=== PATIENT | female | born 1990 | race American Indian/Alaskan Native ===

== ENCOUNTER 2019-04-21 16:55 | Emergency (ER) | payer MEDICAID ==
--- NOTE | 2019-04-21 17:40 | EDM.PDOC ---
Scribed by Holly Orozco 04/21/19 1457 for Brandon Sears MD ED HPI GENERAL MEDICAL PROBLEM - General Chief Complaint: Gastrointestinal Problem Stated Complaint: POSSIBLE FLU Time Seen by Provider: 04/21/19 17:05 Source of Information: Reports: Patient, RN, RN Notes Reviewed History Limitations: Reports: No Limitations - History of Present Illness INITIAL COMMENTS - FREE TEXT/NARRATIVE: Patient presents to ER by POV complaining of having acid reflux for months and stomach being queazy since she got the flu shot last week. She is not vomiting and states that she is still eating and drinking. She has had epigastric pain and burning. She has had flank pain and chills. Onset: Gradual Duration: Constant Location: Reports: Abdomen Quality: Reports: Ache Severity: Moderate Improves with: Reports: None Worsens with: Reports: None Associated Symptoms: Reports: No Other Symptoms - Related Data Allergies Allergy/AdvReac Type Severity Reaction Status Date / Time No Known Allergies Allergy Verified 04/21/19 17:08 Home Meds: Home Meds . 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 ED EXAM, GI/ABD - Physical Exam Exam: See Below Exam Limited By: No Limitations General Appearance: Alert, WD/WN, No Apparent Distress Eyes: Bilateral: Normal Appearance Ears: Normal External Exam, Normal Canal, Hearing Grossly Normal, Normal TMs Nose: Normal Inspection, Normal Mucosa, No Blood Throat/Mouth: Normal Inspection, Normal Lips, Normal Teeth, Normal Gums, Normal Oropharynx, Normal Voice, No Airway Compromise Head: Atraumatic, Normocephalic Neck: Normal Inspection, Supple, Non-Tender, Full Range of Motion Respiratory/Chest: No Respiratory Distress, Lungs Clear, Normal Breath Sounds, No Accessory Muscle Use, Chest Non-Tender Cardiovascular: Normal Peripheral Pulses, Regular Rate, Rhythm, No Edema, No Gallop, No JVD, No Murmur, No Rub GI/Abdominal Exam: Other (epigastric tenderness) (Female) Exam: Deferred Rectal (Female) Exam: Deferred Back Exam: Normal Inspection, Full Range of Motion, NT Extremities: Normal Inspection, Normal Range of Motion, Non-Tender, Normal Capillary Refill, No Pedal Edema Neurological: Alert, Oriented, CN II-XII Intact, Normal Cognition, Normal Gait, Normal Reflexes, No Motor/Sensory Deficits Psychiatric: Normal Affect, Normal Mood Skin Exam: Warm, Dry, Intact, Normal Color, No Rash Course - Vital Signs Last Recorded V/S: Last Vital Signs Temp 97.7 F 04/21/19 17:08 Pulse 75 04/21/19 17:08 Resp 20 04/21/19 17:08 BP 101/70 04/21/19 17:08 Pulse Ox 100 04/21/19 17:08 - Orders/Labs/Meds Orders: Active Orders 24 hr Category Date Time Status CULTURE STREP A CONFIRMATION [] Stat Lab 04/21/19 17:13 Results STREP SCRN A RAPID W CULT CONF [] Stat Lab 04/21/19 17:13 Results Labs: Laboratory Tests 04/21/19 04/21/19 Range/Units 17:17 17:17 Urine Color Yellow (YELLOW) Urine Appearance Slightly cloudy (CLEAR) Urine pH 7.0 (5.0-9.0) Ur Specific [place] 1.025 (1.005-1.030) Urine Protein Negative (NEGATIVE) Urine Glucose (UA) Negative (NEGATIVE) Urine Ketones Negative (NEGATIVE) Urine Occult Blood Trace-intact H (NEGATIVE) Urine Nitrite Negative (NEGATIVE) Urine Bilirubin Negative (NEGATIVE) Urine Urobilinogen 0.2 (0.2-1.0) mg/dL Ur Leukocyte Esterase Negative (NEGATIVE) Urine RBC 5-10 H /HPF Urine WBC 0-5 (0-5/HPF) /HPF Ur Epithelial Cells Few (NOT SEEN) /HPF Urine Bacteria Rare (0-FEW/HPF) /HPF Urine HCG, Qual Negative Rapid strep: Negative. Departure - Departure Time of Disposition: 17:32 Disposition: Home, Self-Care 01 Condition: Good Clinical Impression: Epigastric pain, Viral syndrome GERD (gastroesophageal reflux disease) Qualifiers: Esophagitis presence: without esophagitis Qualified Code(s): K21.9 - Gastro- esophageal reflux disease without esophagitis - Discharge Information *PRESCRIPTION DRUG MONITORING PROGRAM REVIEWED*: Not Applicable *COPY OF PRESCRIPTION DRUG MONITORING REPORT IN PATIENT ISABELLA: Not Applicable Instructions: Viral Illness, Adult, Gastroesophageal Reflux Disease, Adult, [id number] Forms: ED Department Discharge Additional Instructions: RX: Pepcid 20mg. Follow up in clinic in the next 1 to 2 weeks if not improving. - My Orders Last 24 Hours: My Active Orders 04/21/19 17:13 CULTURE STREP A CONFIRMATION [RM] Stat STREP SCRN A RAPID W CULT CONF [RM] Stat - Assessment/Plan Last 24 Hours: My Active Orders 04/21/19 17:13 CULTURE STREP A CONFIRMATION [RM] Stat STREP SCRN A RAPID W CULT CONF [RM] Stat I have read and agree with the documentation that has been completed regarding this visit. By signing this record, I attest that the documentation was completed in my physical presence and is an accurate record of the encounter.
== END 2019-04-21 17:42 | disposition home or self-care (01) ==
LOC: DL.ED 16:55
DX: K21.9 Gastro-esophageal reflux disease without esophagitis (principal); B34.9 Viral infection, unspecified
CPT/HCPCS: 81001; 81025; 87081; 87430; 99283

== ENCOUNTER 2019-06-24 10:40 | Emergency (ER) | payer MEDICAID ==
--- NOTE | 2019-06-24 12:10 | EDM.PDOC ---
ED HPI GENERAL MEDICAL PROBLEM - General Chief Complaint: Skin Complaint Stated Complaint: BOIL ON FACE Time Seen by Provider: 06/24/19 11:55 Source of Information: Reports: Patient History Limitations: Reports: No Limitations - History of Present Illness INITIAL COMMENTS - FREE TEXT/NARRATIVE: This 28 yo female patient reports to the ED with swelling to her chin. The patient was seen in the [facility] yesterday for the same symptoms and started on Bactrim. The patient reports she took 1 dose of the antibiotic and noticed that the symptoms have not gotten any better. The patient reports she has been using Tea Tree Oil on the area along with warm packs. 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: Musculoskeletal History: Reports: Fracture, Other (See Below) Other Musculoskeletal History: tailbone fracture Neurological History: Reports: Seizure Other Neuro History: seizure related to severe dehydration Psychiatric History: Reports: Anxiety, Depression - Infectious Disease History Infectious Disease History: Reports: Chicken Pox - Past Surgical History HEENT Surgical History: Reports: Other (See Below) Other HEENT Surgeries/Procedures: cyst removal to the eye Female Surgical History: Reports: Section Social & Family History - Family History Family Medical History: Noncontributory - Tobacco Use Smoking Status *Q: Former Smoker Used Tobacco, but Quit: Yes Month/Year Tobacco Last Used: 2017 - Caffeine Use Caffeine Use: Reports: Energy Drinks - Recreational Drug Use Recreational Drug Use: No - Living Situation & Occupation Living situation: Reports: with Family ED ROS GENERAL - Review of Systems Review Of Systems: Comprehensive ROS is negative, except as noted in HPI. ED EXAM, SKIN/RASH Exam: See Below Exam Limited By: No Limitations General Appearance: Alert, WD/WN, No Apparent Distress Eye Exam: Bilateral Eye: EOMI, Normal Inspection, PERRL Ears: Normal External Exam, Normal Canal, Hearing Grossly Normal, Normal TMs Nose: Normal Inspection, Normal Mucosa, No Blood Throat/Mouth: Normal Inspection, Normal Lips, Normal Teeth, Normal Gums, Normal Oropharynx, Normal Voice, No Airway Compromise Head: Atraumatic, Normocephalic Neck: Normal Inspection, Supple, Non-Tender, Full Range of Motion Respiratory/Chest: No Respiratory Distress, Lungs Clear, Normal Breath Sounds, No Accessory Muscle Use, Chest Non-Tender Cardiovascular: Normal Peripheral Pulses, Regular Rate, Rhythm, No Edema, No Gallop, No JVD, No Murmur, No Rub GI/Abdominal: Normal Bowel Sounds, Soft, Non-Tender, No Organomegaly, No Distention, No Abnormal Bruit, No Mass (Female) Exam: Deferred Rectal (Female) Exam: Deferred Back Exam: Normal Inspection, Full Range of Motion, NT Neurological: Alert, Oriented, CN II-XII Intact, Normal Cognition, Normal Gait, Normal Reflexes, No Motor/Sensory Deficits Psychiatric: Normal Affect, Normal Mood Skin: Erythema, Increased Warmth Location, Skin: Face (chin) Characteristics: Erythematous Lymphatic: No Adenopathy Course - Vital Signs Last Recorded V/S: Last Vital Signs Temp 36.0 C 06/24/19 10:51 Pulse 66 06/24/19 10:51 Resp 16 06/24/19 10:51 BP 124/75 06/24/19 10:51 Pulse Ox 99 06/24/19 10:51 - Orders/Labs/Meds Labs: Laboratory Tests 06/24/19 Range/Units 12:10 WBC 13.2 H (5.0-10.0) 10^3/uL RBC 4.93 (4.2-5.4) 10^6/uL Hgb 14.7 (12.0-16.0) g/dL Hct 43.6 (37.0-47.0) % MCV 88.4 (80-100) fL MCH 29.8 (27.0-34.0) pg MCHC 33.7 (33.0-35.0) g/dL Plt Count 233 (150-450) 10^3/uL Neut % (Auto) 77.0 H (42.2-75.2) % Lymph % (Auto) 14.1 L (20.5-50.1) % [place] % (Auto) 7.7 (2-8) % Eos % (Auto) 0.9 L (1.0-3.0) % Baso % (Auto) 0.3 (0.0-1.0) % Departure - Departure Time of Disposition: 12:36 Disposition: Home, Self-Care 01 Condition: Fair Clinical Impression: Cellulitis, face - Discharge Information *PRESCRIPTION DRUG MONITORING PROGRAM REVIEWED*: Not Applicable *COPY OF PRESCRIPTION DRUG MONITORING REPORT IN PATIENT ISABELLA: Not Applicable Instructions: Cellulitis, Adult, [id number] Forms: ED Department Discharge Care Plan Goals: The patient was advised of the examination and lab results during the visit. The patient was discharged with a script for Keflex (500 mg) #40 to take 1 by mouth 4 times per day for 10 days and Bactroban 2% ointment #22 gm to apply to the are 2 times per day for 5 days. The patient should continue to take the Bactrim as prescribed. If the patient has any additional symptoms or concerns, the patient should either return to the emergency department or visit her primary care facility. Sepsis Event Note - Evaluation Sepsis Screening Result: No Definite Risk - Focused Exam Vital Signs: Vital Signs Temp Pulse Resp BP Pulse Ox 06/24/19 10:51 36.0 C 66 16 124/75 99 Date Exam was Performed: 06/24/19 Time Exam was Performed: 12:35
== END 2019-06-24 12:37 | disposition home or self-care (01) ==
LOC: DL.ED 10:40
DX: L03.211 Cellulitis of face (principal); F41.9 Anxiety disorder, unspecified; F32.9 Major depressive disorder, single episode, unspecified; Z79.899 Other long term (current) drug therapy; Z87.891 Personal history of nicotine dependence
CPT/HCPCS: 36415; 85025; 99283

== ENCOUNTER 2019-06-24 22:18 | Emergency (ER) | payer MEDICAID ==
[2019-06-24] MEDS ORDERED: Mupirocin Oint 22 GM Tube TOP ONE (22:37)
[2019-06-24] MEDS ORDERED: Lidocaine 1% 30 ML SDV INJECT ONE (22:37)
--- NOTE | 2019-06-24 22:44 | EDM.PDOC ---
ED HPI GENERAL MEDICAL PROBLEM - General Chief Complaint: Skin Complaint Stated Complaint: BOIL ON FACE Time Seen by Provider: 06/24/19 22:30 Source of Information: Reports: Patient, Family, RN, RN Notes Reviewed History Limitations: Reports: No Limitations - History of Present Illness INITIAL COMMENTS - FREE TEXT/NARRATIVE: Patient to ER with complaint of abscess to the chin. Patient states it began Saturday.patient states she was seen in the clinic, was started on Bactrim. Patient states she is unable to eat, therefore unable to take her antibiotics. Patient was seen in the ER today, but left before being discharged fully. She states there was a patient in the ER that made her afraid to be here. Patient states she continues to be unable to eat, and has been having fever and cold sweats. 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: Musculoskeletal History: Reports: Fracture, Other (See Below) Other Musculoskeletal History: tailbone fracture Neurological History: Reports: Seizure Other Neuro History: seizure related to severe dehydration Psychiatric History: Reports: Anxiety, Depression - Infectious Disease History Infectious Disease History: Reports: Chicken Pox - Past Surgical History HEENT Surgical History: Reports: Other (See Below) Other HEENT Surgeries/Procedures: cyst removal to the eye Female Surgical History: Reports: Section Social & Family History - Family History Family Medical History: Noncontributory - Tobacco Use Smoking Status *Q: Never Smoker Second Hand Smoke Exposure: No - Caffeine Use Caffeine Use: Reports: Soda - Recreational Drug Use Recreational Drug Use: No - Living Situation & Occupation Living situation: Reports: with Family ED ROS GENERAL - Review of Systems Review Of Systems: Comprehensive ROS is negative, except as noted in HPI. ED EXAM, SKIN/RASH Exam: See Below Exam Limited By: No Limitations General Appearance: Alert, WD/WN, Anxious, Moderate Distress Eye Exam: Bilateral Eye: EOMI, Normal Inspection Ears: Normal External Exam, Hearing Grossly Normal Nose: Normal Inspection Throat/Mouth: Normal Inspection, Normal Teeth, Normal Gums, Normal Oropharynx, Normal Voice, No Airway Compromise, Other (approximately 6 cm x 8 cm erythema and swelling, induration to the chin) Head: Atraumatic, Normocephalic Neck: Normal Inspection, Supple, Non-Tender, Full Range of Motion Respiratory/Chest: No Respiratory Distress, Lungs Clear, Normal Breath Sounds, No Accessory Muscle Use, Chest Non-Tender Cardiovascular: Normal Peripheral Pulses, Regular Rate, Rhythm, No Edema, No Gallop, No JVD, No Murmur, No Rub Peripheral Pulses: 2+: Radial (L), Radial (R) GI/Abdominal: Normal Bowel Sounds, Soft, Non-Tender (Female) Exam: Deferred Rectal (Female) Exam: Deferred Back Exam: Normal Inspection, Full Range of Motion, NT Extremities: Normal Inspection, Normal Range of Motion, Non-Tender, No Pedal Edema, Normal Capillary Refill Neurological: Alert, Oriented, CN II-XII Intact, Normal Cognition, Normal Gait, Normal Reflexes, No Motor/Sensory Deficits Psychiatric: Anxious, Tearful Skin: Warm, Dry, Other (approximately 6cm x 8cm erythema, induration, swelling to the chin with central small white head and scabbed area.) Location, Skin: Face Characteristics: Erythematous Associated features: Warmth, Tenderness, Swelling, Induration, Inflammation Lymphatic: No Adenopathy ED SKIN PROCEDURES - I&D Site: chin Skin Prep: Isopropyl Alcohol (Alcohol) Local Anesthesia: Lidocaine: 1% Plain Local Anesthetic Volume: 1cc Area Incised With: Needle Drainage: Purulent, Bloody, Small Amount Probed to Break Up Loculations: Yes Packed With: None Sterile Dressinx4(s), Other (Bactroban) Complications: No Course - Vital Signs Last Recorded V/S: Last Vital Signs Temp 98.6 F 06/24/19 22:24 Pulse 83 06/24/19 22:24 Resp 18 06/24/19 22:24 BP 122/73 06/24/19 22:24 Pulse Ox 98 06/24/19 22:24 - Orders/Labs/Meds Orders: Active Orders 24 hr Category Date Time Status CULTURE WOUND [RM] Urgent Lab 06/24/19 22:37 Ordered Acetaminophen/HYDROcodone [[place] 325-5 MG] Med 06/24/19 22:58 Once 1 tab PO ONETIME ONE cephALEXin [Keflex] Med 06/24/19 22:58 Once 500 mg PO ONETIME ONE Meds: Medications Discontinued Medications Generic Name Dose Route Start Last Admin Trade Name [place] PRN Reason Stop Dose Admin Lidocaine HCl 30 ml 06/24/19 22:37 06/24/19 22:48 Xylocaine-Mpf 1% INJECT 06/24/19 22:38 30 ml ONETIME ONE Administration Mupirocin 1 gm 06/24/19 22:37 06/24/19 22:57 Bactroban Oint TOP 06/24/19 22:38 1 dose ONETIME ONE Administration - Re-Assessments/Exams Free Text/Narrative Re-Assessment/Exam: 06/24/19 23:02 patient was made aware that due to the place on the face where the abscess and cellulitis are, I would prefer to probe with needle to decrease pressure, and if this would need to be opened, have plastic surgery on board. Patient states she "does not care at this point" if there is scarring. 06/24/19 23:05 prescription that was previously written by PIPER Miranda, which the patient left when seen earlier, was given to the patient at this time. No further scripts were written. Patient was advised to take the antibiotics as directed. Departure - Departure Time of Disposition: 23:04 Disposition: Home, Self-Care 01 Condition: Fair Clinical Impression: Abscess Cellulitis Qualifiers: Site of cellulitis: face Qualified Code(s): L03.211 - Cellulitis of face - Discharge Information *PRESCRIPTION DRUG MONITORING PROGRAM REVIEWED*: No *COPY OF PRESCRIPTION DRUG MONITORING REPORT IN PATIENT ISABELLA: No Instructions: Skin Abscess, [id number], Incision and Drainage, Care After, Cellulitis, Adult, [id number] Forms: ED Department Discharge Additional Instructions: Eat soft foods such as mashed potatoes, oatmeal, Ensure or Boost shakes. drink plenty of water May use ibuprofen and/or Tylenol as directed for pain Take Bactrim and Keflex as directed Use Bactroban as directed Follow-up with your primary care provider Sepsis Event Note - Evaluation Sepsis Screening Result: No Definite Risk - Focused Exam Vital Signs: Vital Signs Temp Pulse Resp BP Pulse Ox 06/24/19 22:24 98.6 F 83 18 122/73 98 Date Exam was Performed: 06/24/19 Time Exam was Performed: 22:58 - My Orders Last 24 Hours: My Active Orders 06/24/19 22:37 CULTURE WOUND [RM] Urgent 06/24/19 22:58 Acetaminophen/HYDROcodone [[place] 325-5 MG] 1 tab PO ONETIME ONE cephALEXin [Keflex] 500 mg PO ONETIME ONE - Assessment/Plan Last 24 Hours: My Active Orders 06/24/19 22:37 CULTURE WOUND [RM] Urgent 06/24/19 22:58 Acetaminophen/HYDROcodone [[place] 325-5 MG] 1 tab PO ONETIME ONE cephALEXin [Keflex] 500 mg PO ONETIME ONE
[2019-06-24] MEDS ORDERED: Acetaminophen/HYDROcodone 325-5 MG Tab PO ONE (22:58)
[2019-06-24] MEDS ORDERED: Cephalexin 500 MG Cap PO ONE (22:58)
== END 2019-06-24 23:12 | disposition home or self-care (01) ==
LOC: DL.ED 22:18
DX: L03.211 Cellulitis of face (principal); F41.9 Anxiety disorder, unspecified; F32.9 Major depressive disorder, single episode, unspecified
CPT/HCPCS: 87070; 87077; 87186; 99283; A9270; J2001

== ENCOUNTER 2020-05-18 17:02 | Emergency (ER) | payer SELFPAY ==
[2020-05-18] MEDS ORDERED: Benzonatate 100 MG Cap PO ONE (17:03)
--- NOTE | 2020-05-18 18:43 | EDM.PDOC ---
ED HPI GENERAL MEDICAL PROBLEM - General Chief Complaint: Respiratory Problem Stated Complaint: vomitting coughing headache body ache Time Seen by Provider: 05/18/20 18:00 Source of Information: Reports: Patient, RN, RN Notes Reviewed History Limitations: Reports: No Limitations - History of Present Illness INITIAL COMMENTS - FREE TEXT/NARRATIVE: Patient presents to the ED via personal vehicle for complaints of nasal drainage, sinus pressure, cough, and sore throat. Per the patient report, her symptoms began six days ago (05/12/20). She does report contact on 05/11/20 with a person recently diagnosed with COVID shortly after this contact, and she is concerned she is positive as well. She denies fever, shaking chills, chest pain, shortness of breath, palpitations, nausea, vomiting, and diarrhea. She additionally attests to muscle aches and headache. She feels her symptoms are not progressively worsening, but it concerned she it not improving. She denies using medications for these symptoms. She denies alcohol, tobacco, or recreational substance use. - Related Data Allergies Allergy/AdvReac Type Severity Reaction Status Date / Time No Known Allergies Allergy Verified 05/18/20 17:32 Home Meds: Home Meds . 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: Musculoskeletal History: Reports: Fracture, Other (See Below) Other Musculoskeletal History: tailbone fracture Neurological History: Reports: Seizure Other Neuro History: seizure related to severe dehydration Psychiatric History: Reports: Anxiety, Depression Endocrine/Metabolic History: Reports: None Hematologic History: Reports: None Immunologic History: Reports: None Oncologic (Cancer) History: Reports: None Dermatologic History: Reports: None - Infectious Disease History Infectious Disease History: Reports: Chicken Pox - Past Surgical History HEENT Surgical History: Reports: Other (See Below) Other HEENT Surgeries/Procedures: cyst removal to the eye Female Surgical History: Reports: Section Social & Family History - Family History Family Medical History: Noncontributory - Tobacco Use Tobacco Use Status *Q: Never Tobacco User - Caffeine Use Caffeine Use: Reports: Soda - Living Situation & Occupation Living situation: Reports: with Family ED ROS GENERAL - Review of Systems Review Of Systems: Comprehensive ROS is negative, except as noted in HPI. ED EXAM, GENERAL - Physical Exam Exam: See Below Exam Limited By: No Limitations General Appearance: Alert, WD/WN, No Apparent Distress Eye Exam: Bilateral Eye: EOMI, Normal Inspection, PERRL Ears: Normal External Exam, Normal Canal, Hearing Grossly Normal, Normal TMs Ear Exam: Bilateral Ear: Auricle Normal, Canal Normal, TM normal, Other (Minimal fluid behind TM) Nose: No Blood, Nasal Tenderness, Nasal Swelling, Clear Rhinorrhea, Other (Injected turbinates) Throat/Mouth: Normal Lips, Normal Teeth, Normal Gums, Normal Oropharynx, Normal Voice, No Airway Compromise, Inflammation Head: Atraumatic, Normocephalic Neck: Supple, Full Range of Motion, Lymphadenopathy (L), Tender Lateral (Anterior). No: Lymphadenopathy (R), Tender Midline, Thyromegaly Respiratory/Chest: No Respiratory Distress, Lungs Clear, Normal Breath Sounds, No Accessory Muscle Use, Chest Non-Tender. No: Crackles, Rales, Rhonchi, Wheezing, Stridor Cardiovascular: Normal Peripheral Pulses, Regular Rate, Rhythm, No Edema, No Gallop, No JVD, No Rub Peripheral Pulses: 2+: Radial (L), Radial (R), Dorsalis Pedis (L), Dorsalis Pedis (R) GI/Abdominal: Normal Bowel Sounds, Soft, Non-Tender, No Distention, No Mass, Pelvis Stable Back Exam: Normal Inspection, Full Range of Motion Extremities: Normal Inspection, Normal Range of Motion, Non-Tender, No Pedal Edema, Normal Capillary Refill Neurological: Alert, Oriented, CN II-XII Intact, No Motor/Sensory Deficits Skin Exam: Warm, Dry, Intact, Normal Color, No Rash. No: Ecchymosis, Erythema, Mottled, Pallor, Petechiae Course - Vital Signs Last Recorded V/S: Last Vital Signs Temp 98.1 F 05/18/20 17:25 Pulse 92 05/18/20 17:25 Resp 20 05/18/20 17:25 BP 114/69 05/18/20 17:25 Pulse Ox 99 05/18/20 17:25 - Orders/Labs/Meds Meds: Medications Discontinued Medications Generic Name Dose Route Start Last Admin Trade Name Freq PRN Reason Stop Dose Admin Benzonatate Confirm 05/18/20 18:48 Monisalalphonse Salazar Administered 05/18/20 18:49 Dose 300 mg .ROUTE .STK-MED ONE - Re-Assessments/Exams Free Text/Narrative Re-Assessment/Exam: Rx: Thanhon Patient counseled on the usual presentation of viral vs bacterial infections. Discussed likelihood slim the COVID virus from the stated contact is unlikely given the timing of symptoms, but that it does not exclude COVID as the source of her symptoms. Discussed symptoms management and supportive cares, including salt water gargles, nasal rinses, Tylenol/Motrin q6h staggered, and hydration. Patient verbalized understanding and agreement with plan of care. Departure - Departure Time of Disposition: 18:37 Disposition: Home, Self-Care 01 Condition: Good Clinical Impression: Upper respiratory infection, acute - Discharge Information *PRESCRIPTION DRUG MONITORING PROGRAM REVIEWED*: Not Applicable *COPY OF PRESCRIPTION DRUG MONITORING REPORT IN PATIENT ISABELLA: Not Applicable Instructions: Upper Respiratory Infection, Adult, [id number] Referrals: PCP,Unobtain [Primary Care Provider] - Forms: ED Department Discharge Additional Instructions: Rx: Eagle Salazar Use over the counter Flonase, 2 sprays in each nare, daily Drink plenty of fluids to stay hydrated Take acetaminophrn 650mg every six hours or ibuprofen 400mg every six hours for muscle aches and fever. Follow up with primary care provider for significant chest pain, shortness of breath, or fever that does not decrease with acetaminophen or ibuprofen Sepsis Event Note (ED) - Evaluation Sepsis Screening Result: No Definite Risk
[2020-05-18] MEDS ORDERED: Benzonatate 100 MG Cap ONE (18:48)
== END 2020-05-18 18:56 | disposition home or self-care (01) ==
LOC: DL.ED 17:02
DX: J06.9 Acute upper respiratory infection, unspecified (principal); Z20.828 Contact with and (suspected) exposure to other viral communicable diseases
CPT/HCPCS: 87635; 87804; 99283; A9270; U0002